=== PATIENT | female | born 1995 | race Caucasian/White ===

== ENCOUNTER 2017-07-05 20:54 | Emergency (ER) | payer BC ==
--- NOTE | 2017-07-05 21:14 | EDPHY ---
General Time Seen by Provider: 07/05/17 21:03 Narrative: CHIEF COMPLAINT: Right lower quadrant pain HISTORY OF PRESENT ILLNESS: Patient presents with complaints of right lower quadrant pain and concern for appendicitis. Pain started earlier today but worsened abruptly at 6:00 p.m.. At 1st it was in her low back and near the umbilicus. Around 6:00 p.m. It changed to the right lower quadrant. Described as sharp, constant pressure. Worse with ambulation, palpation Valsalva. Improves when resting and lying still. Nausea but no vomiting. Subjectively febrile. No trauma or injury. No vaginal bleeding, discharge or pain. No urinary complaints. She did have intercourse this morning with no pain. She does report some cramping after intercourse occasionally. REVIEW OF SYSTEMS: Ten systems reviewed and are negative unless otherwise noted in the HPI PCP: None locally SPECIALISTS: None PAST MEDICAL HISTORY: Uncomplicated medical history PAST SURGICAL HISTORY: Tonsillectomy. No abdominal surgeries SOCIAL HISTORY: Nonsmoker. [employer] student. Originally from [place] FAMILY HISTORY: Noncontributory EXAMINATION General Appearance: Alert, no distress Head: normocephalic, atraumatic Eyes: Pupils equal and round, no conjunctival pallor or injection ENT, Mouth: Mucous membranes moist Neck: Normal inspection, supple, non-tender Respiratory: Lungs are clear to auscultation. No wheezing, rhonchi or crackles Cardiovascular: Regular rate and rhythm. No murmur Gastrointestinal: Abdomen is soft and nondistended. There is tenderness in the right lower quadrant over McBurney's point. No tenderness of the remainder quadrants. Bowel sounds are present all 4 quadrants. No tympany. No rigidity. Minimal guarding the right lower quadrant. Negative Rovsing. Mild rebound. No mass. No CVA tenderness. Back: non-tender, no bony abnormalities Neurological: A&O, nonfocal, normal gait Skin: Warm and dry, no rash. No petechiae or purpura Extremities: Nontender, no pedal edema Psychiatric: Mood and affect normal DIFFERENTIAL DIAGNOSES: Including but not limited to acute appendicitis, colitis, diverticulitis, ovarian torsion, ovarian cyst, nephrolithiasis, renal colic, ureterolithiasis MDM: 9:10 p.m. Right lower quadrant pain of 3 hr duration. She does have tenderness at McBurney's point. I have ordered ultrasound of the pelvis and appendix. I have ordered laboratory studies and IV placement. She is resting comfortably in no acute distress and declines pain medication at this time. She is NPO of solids as 6:00 p.m.. NPO which is 30 p.m.. No previous abdominal surgeries. No other associated complaints or modifying factors. 9:40 p.m. CBC is within normal limits. Urinalysis is also within normal limits. Chemistry pending. Ultrasounds are pending. 9:50 p.m. sound recording technician at bedside the patient is not tolerating the scan due to pain. I have ordered pain medication IV 10:00 p.m. Urinalysis unremarkable. Chemistry is within normal limits. 10:30 p.m. Case discussed with radiologist Dr. Vargas. Ultrasound of the pelvis is unremarkable and does not provide a source of her pain. Ultrasound the appendix reveals small fluid collection and a few enlarged lymph nodes but no visualization of the appendix. I re-evaluated the patient. She still has sharp pain right lower quadrant over McBurney's point. I do feel she warrants a CT scan of the abdomen pelvis. We discussed risk benefits and she has consented. She is in no acute distress. I have also order IV fluid. 11:05 p.m. Notified by radiologist Dr. Vargas. Moderate to severe constipation. The appendix is still not visualized on this study. Recommend surgical consultation if clinically indicated. 11:20 p.m. I have discussed the case with the on-call general surgeon Dr. Breonna Foote. She will provide consultation for the patient in the emergency department. I have also discussed this with patient she is resting comfortably. She still has pain. She informed me that she did have a bowel movement this morning but does have intermittent constipation. 11:55 p.m. Patient has been evaluated by Dr. Foote. She agrees this is likely constipation. Please see her consultation note for further details. She agrees with discharge home with bowel regimen for constipation. She has discussed close follow-up with the patient tomorrow. 12:05 a.m. Patient re-evaluated. We discussed her consultation, laboratory studies and CT scan. At this point I do feel it is likely due to her constipation. She is pain-free at this time after IV morphine. She is in no acute distress. We discussed a bowel regimen including magnesium citrate, Fleet enema and possibly MiraLax. I have written this down for her. She is verbalized her understanding. She has strict ED precautions for any worsening pain, vomiting or complete bowel movement. She will contact Dr. Foote tomorrow for outpatient care if needed. She is comfortable this plan and discharged home stable condition. SUPERVISION: Patient was independently examined, but I discussed the case with my secondary supervising physician Dr. Dela Cruz - History Smoking Status: Never smoked - Objective Vital Signs: Initial Vital Signs Temperature (C) 98.4 F 07/05/17 20:57 Heart Rate 95 07/05/17 20:57 Respiratory Rate 18 07/05/17 20:57 Blood Pressure 142/90 H 07/05/17 20:57 O2 Sat (%) 92 07/05/17 20:57 O2 Delivery Mode Room Air Allergies/Adverse Reactions: amoxicillin Allergy (Verified 07/05/17 20:57) Home Medications: Medication Instructions Recorded Bcp 01/13/16 Ofloxacin 0.3% [Ocuflox 0.3% (RX)] 1 drops RTEYE 5XD #1 btl 01/13/16 Laboratory Results: Laboratory Results 07/05/17 21:21 07/05/17 21:21 Medications Given: Discontinued Medications Sodium Chloride (Ns) 1,000 mls @ 0 mls/hr IV EDNOW ONE; Wide Open PRN Reason: Protocol Stop: 07/05/17 22:36 Last Admin: 07/05/17 22:41 Dose: 1,000 mls Morphine Sulfate (Morphine) 4 mg IVP EDNOW ONE Stop: 07/05/17 21:51 Last Admin: 07/05/17 21:55 Dose: 4 mg Ondansetron HCl (Zofran) 4 mg IVP EDNOW ONE Stop: 07/05/17 21:51 Last Admin: 07/05/17 21:55 Dose: 4 mg Departure - Departure Disposition: Home, Routine, Self-Care Clinical Impression: Acute abdominal pain Constipation Qualifiers: Constipation type: unspecified constipation type Qualified Code(s): K59.00 - Constipation, unspecified Condition: Good Instructions: Polyethylene Glycol 3350 (By mouth), Magnesium Citrate (By mouth) , Constipation (ED), Fleet Enema (ED) Additional Instructions: 1. Recommend magnesium citrate 1 bottle. Drink half of the bottle and weight 1 hr for bowel movement. If no bowel movement or incomplete bowel movement, drink the remainder of the bottle. 2. If no successful bowel movement follow the magnesium citrate, proceed with Fleet's enema [id number] as discussed 3. No successful bowel movement following this, repeat the magnesium citrate dosing 4. Recommend MiraLax 1 packet by mouth [id number] every other day once the constipation has resolved 5. On Thursday morning, Contact the on-call surgeon that evaluated you in the emergency department 6. ED precautions for no improvement in pain, unsuccessful bowel movement, fever , vomiting Referrals: ISAIAH WASHINGTON [Other] - As per Instructions Breonna Foote MD [Medical Doctor] - As per Instructions Stand Alone Forms: School Excuse
[2017-07-05 21:32] LABS: PLATELET COUNT 288 10^3/uL (150-400)
[2017-07-05] MEDS ORDERED: ONDANSETRON 4 MG/2 ML VIAL IVP ONE (21:50)
[2017-07-05] MEDS ORDERED: NS 1,000 ML IV ONE (22:35)
[2017-07-05] MEDS ORDERED: IOPAMIDOL (ISOVUE-300) 100 ML BTL ONE (22:39)
--- NOTE | 2017-07-06 00:29 | GCON ---
[f rep st] CONSULTATION CONSULTATION NOTE REFERRING PHYSICIAN: Godfrey Dela Cruz MD CHIEF COMPLAINT: Right lower quadrant pain. HISTORY OF PRESENT ILLNESS: The patient is a 21-year-old woman, who 1st noticed skin sensitivity of her abdomen around 2 p.m. Around 5-6 p.m. her back started hurting, and then around 7 p.m. the right lower quadrant became more painful. It was a constant pain worse with moving. She had a normal bow el movement this morning. Her temperature is 99.5. She had associated chills. She did have some na usea, but no vomiting. She denies sick contacts. She had an ultrasound performed in the ER, which s howed a small amount of right lower quadrant fluid, but no obvious appendix. IUD is in appropriate p osition. She had a CT scan, which did not visualize the appendix, but did show a large amount of con stipation. There were no secondary signs of appendicitis. PAST MEDICAL HISTORY: None. PAST SURGICAL HISTORY: Tonsillectomy. SOCIAL HISTORY: She is studying in technology, arts, and [employer]. Denies tobacco use. FAMILY HISTORY: A family history of inflammatory bowel disease. REVIEW OF SYSTEMS: A 10-point review of systems negative except per HPI. PHYSICAL EXAMINATION: VITAL SIGNS: 36.9, 84, 112/76, 20, 96%. GENERAL: Pleasant, thin, well-groom ed woman lying on exam table. Friend at bedside. HEENT: Normocephalic. No gross hearing deficits. Mucous membranes moist. Pupils equal and round. No scleral icterus. Nose ring. LUNGS: Clear to auscultation bilaterally. No increased work of breathing. CARDIAC: Regular rate. No peripheral e nan. ABDOMEN: Bowel sounds present. She is soft. She is currently nontender. SKIN: Warm and dr y. PSYCH: Mood and affect normal. NEUROLOGIC: Grossly intact. I personally reviewed the results of her CT scan and saw a large amount of constipation. The IUD is in appropriate place. I reviewed her labs, which shows a normal white count, and her HCG is negative . I discussed the case with the radiologist cable installation manager, as well as with the ER staff. IMPRESSION AND PLAN: The patient is a 21-year-old woman with right lower quadrant pain. Her story i s somewhat consistent with acute appendicitis. However, her laboratory work is within normal limits, and the appendix is not visualized. Since the pain just started today, I think it is more prudent t o rule out constipation as a source. She will have a bowel protocol performed. If the pain persists , I have given her my contact information, and we can take her to the operating room. /[id number]/MODL
[2017-07-06 00:42] VITALS: BP 107/72
== END 2017-07-06 00:40 | disposition home or self-care (01) ==
DX: K59.00 Constipation, unspecified (principal); E86.9 Volume depletion, unspecified
CPT/HCPCS: 96374; J2270; J2405; Q9967

== ENCOUNTER 2017-10-23 16:40 | Emergency (ER) | payer BC ==
[2017-10-23] MEDS ORDERED: NS 1,000 ML IV ONE (17:06)
[2017-10-23] MEDS ORDERED: IBUPROFEN 600 MG TAB PO ONE (17:08)
[2017-10-23 17:26] LABS: PLATELET COUNT 254 10^3/uL (150-400)
--- NOTE | 2017-10-23 18:42 | EDPHY ---
H & P Time Seen by Provider: 10/23/17 16:48 HPI/ROS: CHIEF COMPLAINT: Abdominal pain HISTORY OF PRESENT ILLNESS: Develops pain around 11:30 a.m. Today walking to the car. Relatively rapid onset lower abdominal right greater than left. She [place] [facility] [place] and was referred here for question of appendicitis. Patient is slightly hungry now. She did not have vomiting or diarrhea or urinary symptoms. Symptoms were worse with movement or walking or position. Not associated with vaginal bleeding or injury or recent trauma or fever or chills. REVIEW OF SYSTEMS: Eye: no change in vision ENT: no sore throat Cardiac: no chest pain or syncope Pulmonary: no cough or SOB Abdomen: HPI no diarrhea Musculoskeletal: no back pain Skin: no rash Neuro: no headache Constitutional: no fever : no urinary symptoms A comprehensive 10 point review of systems is otherwise negative aside from elements mentioned in the history of present illness. PAST MEDICAL HISTORY: Negative Social history: Here with her boyfriend General Appearance: Alert and conversant, cooperative. Eyes: No scleral icterus. ENT, Mouth: Normal mucous membranes. Respiratory: Normal respiratory effort, breath sounds equal, lungs are clear to auscultation. Cardiovascular: Regular rate and rhythm. Gastrointestinal: Bilateral lower abdominal tenderness without rebound or guarding. Neurological: Alert, face symmetric, normal motor and sensory in extremities. Skin: Warm and dry, no rashes. Musculoskeletal: No peripheral edema. Psychiatric: Not agitated. Emergency Department course/MDM: Ultrasound per [facility] shows pelvic free fluid, appendix not seen, otherwise normal ovaries query ruptured cyst. Oral ibuprofen discussed and consented. 1848: Results discussed with the patient. She is hungry and did not have peritoneal signs, normal white blood cell count, afebrile here. I think ovarian cyst is much more likely than appendicitis especially given ultrasound findings, and I think CT scanning is not emergently indicated at this time and I think observation is reasonable. Warned to return with standard precautions. Smoking Status: Never smoked Constitutional: Initial Vital Signs Temperature (C) 37.1 C 10/23/17 16:41 Heart Rate 75 10/23/17 16:41 Respiratory Rate 18 10/23/17 16:41 Blood Pressure 111/81 H 10/23/17 16:41 O2 Sat (%) 97 10/23/17 16:41 O2 Delivery Mode Room Air Allergies/Adverse Reactions: amoxicillin Allergy (Mild, Verified 10/23/17 16:44) "migraines" Home Medications: Medication Instructions Recorded Iud 10/23/17 Medical Decision Making - Diagnostics Imaging Results: Imaging Impressions Abdomen Ultrasound 10/23/17 17:07 Impression: Nonvisualization of the appendix with no secondary evidence of appendicitis. Findings discussed with COLE LNUA 10/23/2017 at 18:19. Pelvic/Renal Ultrasound 10/23/17 17:07 Impression: 1. No acute findings in the pelvis. 2. Small amount of free fluid, with a hemorrhagic corpus luteum in the right ovary. 3. IUD in good position. Imaging: Discussed imaging studies w/ bilingual call center representative Radiologist Differential Diagnosis: Differential considered including but not limited to ovarian cyst, ovarian torsion, UTI, renal colic, PID, appendicitis. - Data Points Laboratory Results: Laboratory Results 10/23/17 17:00 10/23/17 10/23/17 10/23/17 17:00 17:00 17:00 WBC 9.41 10^3/uL 10^3/uL (3.80-9.50) RBC 4.22 10^6/uL 10^6/uL (4.18-5.33) Hgb 13.0 g/dL g/dL (12.6-16.3) Hct 39.4 % % (38.0-47.0) MCV 93.4 fL fL (81.5-99.8) MCH 30.8 pg pg (27.9-34.1) MCHC 33.0 g/dL g/dL (32.4-36.7) RDW 12.1 % % (11.5-15.2) Plt Count 254 10^3/uL 10^3/uL (150-400) MPV 10.7 fL fL (8.7-11.7) Neut % (Auto) 70.8 % % (39.3-74.2) Lymph % (Auto) 18.7 % % (15.0-45.0) [place] % (Auto) 8.5 % % (4.5-13.0) Eos % (Auto) 1.2 % % (0.6-7.6) Baso % (Auto) 0.5 % % (0.3-1.7) Nucleat RBC Rel Count 0.0 % % (0.0-0.2) Absolute Neuts (auto) 6.66 10^3/uL H 10^3/uL (1.70-6.50) Absolute Lymphs (auto) 1.76 10^3/uL 10^3/uL (1.00-3.00) Absolute Monos (auto) 0.80 10^3/uL 10^3/uL (0.30-0.80) Absolute Eos (auto) 0.11 10^3/uL 10^3/uL (0.03-0.40) Absolute Basos (auto) 0.05 10^3/uL 10^3/uL (0.02-0.10) Absolute Nucleated RBC 0.00 10^3/uL 10^3/uL (0-0.01) Immature Gran % 0.3 % % (0.0-1.1) Immature Gran # 0.03 10^3/uL 10^3/uL (0.00-0.10) Beta HCG, Qual NEGATIVE Urine Color PALE YELLOW Urine Appearance CLEAR Urine pH 7.0 (5.0-7.5) Ur Specific Martin 1.005 (1.002-1.030) Urine Protein NEGATIVE (NEGATIVE) Urine Ketones NEGATIVE (NEGATIVE) Urine Blood NEGATIVE (NEGATIVE) Urine Nitrate NEGATIVE (NEGATIVE) Urine Bilirubin NEGATIVE (NEGATIVE) Urine Urobilinogen NEGATIVE EU EU (0.2-1.0) Ur Leukocyte Esterase NEGATIVE (NEGATIVE) Urine Glucose NEGATIVE (NEGATIVE) Medications Given: Discontinued Medications Sodium Chloride (Ns) 1,000 mls @ 0 mls/hr IV EDNOW ONE; Wide Open PRN Reason: Protocol Stop: 10/23/17 17:07 Last Admin: 10/23/17 17:35 Dose: 1,000 mls Ibuprofen (Motrin) 600 mg PO EDNOW ONE Stop: 10/23/17 17:09 Last Admin: 10/23/17 17:42 Dose: 600 mg Departure - Departure Disposition: Home, Routine, Self-Care Clinical Impression: Ovarian cyst Qualifiers: Laterality: right Qualified Code(s): N83.201 - Unspecified ovarian cyst, right side Condition: Good Instructions: Ovarian Cyst (ED) Additional Instructions: You need to return to the emergency department immediately if you develop worsening or severe pain, fever, vomiting or you are not completely better in 8- 12 hours. Referrals: Gisella Milligan DO [Doctor of Osteopathy] - As per Instructions (next week early )
[2017-10-23 19:25] VITALS: BP 109/73
== END 2017-10-23 19:25 | disposition home or self-care (01) ==
DX: N83.201 Unspecified ovarian cyst, right side (principal); E86.9 Volume depletion, unspecified